=== PATIENT | male | born 1980 | race Caucasian/White ===

== ENCOUNTER 2017-09-24 14:42 | Inpatient (IN) | payer MEDICARE, MEDICAID ==
[~2017-09-24] VITALS: Ht 182.9 cm; Wt 120.1 kg
[~2017-09-24 14:42] MED LIST: BACL10TA PO; DICL50TA3 PO; HYDR-3533 PO; LAMI25TA3 PO; LORA-475 PO; LURA20TA PO; OMEP20TA39 PO; PREG100 PO; TEMA15 PO; VIIB40TA PO
[2017-09-24 14:46] VITALS: BP 170/108; PULSE 82; RESP 17; TEMP 97.5; O2SAT 99
[2017-09-24] MEDS ORDERED: OMEP20TA93 PO (15:12)
[2017-09-24] MEDS ORDERED: LAMO100 PO (15:12)
[2017-09-24] MEDS ORDERED: DICL50TA3 PO (15:12)
[2017-09-24] MEDS ORDERED: LURA80 PO (15:12)
[2017-09-24] MEDS ORDERED: LORA2TAB7 PO (15:12)
[2017-09-24] MEDS ORDERED: CYMB60CA PO (15:14)
[2017-09-24] MEDS ORDERED: MORPHINE SULFATE 2 MG/ML INJ IV PUSH ONE ×2 (15:15→17:45)
[2017-09-24] MEDS ORDERED: ONDANSETRON HCL 4 MG/2 ML VIAL IV PUSH ONE (15:15)
[2017-09-24] MEDS ORDERED: SODIUM CHLOR 0.9% 1000 ML INJ 1,000 ML IV ONE (15:15)
[2017-09-24 15:39] LABS: AUTOMATED NEUTROPHIL # 10.2 TH/MM3 (1.8-7.7); BASOPHIL # 0.3 TH/MM3 (0-0.2); BASOPHIL % 2.7 % (0.0-2.0); HEMOGLOBIN 14.7 GM/DL (13.0-17.0); LYMPH % 8.3 % (9.0-44.0); MEAN CELL VOLUME 74.6 FL (80.0-100.0); MEAN CORPUSCULAR HEMOGLOBIN 24.3 PG (27.0-34.0); MEAN CORPUSCULAR HGB CONC 32.6 % (32.0-36.0); MEAN PLATELET VOLUME 7.6 FL (7.0-11.0); MONO % 3.4 % (0.0-8.0); MONOCYTE # 0.4 TH/MM3 (0-0.9); NEUT % 85.6 % (16.0-70.0); PLATELET COUNT 295 TH/MM3 (150-450); RED BLOOD COUNT 6.04 MIL/MM3 (4.50-5.90); RED CELL DISTRIBUTION WIDTH 15.3 % (11.6-17.2); WHITE BLOOD COUNT 11.9 TH/MM3 (4.0-11.0)
[2017-09-24] MEDS ORDERED: ROBA500T PO (15:42)
[2017-09-24 15:51] LABS: CHLORIDE 103 MEQ/L (98-107); SODIUM (NA) 138 MEQ/L (136-145)
[2017-09-24 15:54] LABS: ALBUMIN 3.6 GM/DL (3.4-5.0); BICARBONATE 26.7 MEQ/L (21.0-32.0); CALCIUM 9.4 MG/DL (8.5-10.1); LIPASE 92 U/L (73-393)
[2017-09-24 15:55] LABS: BLOOD UREA NITROGEN 14 MG/DL (7-18); GLUCOSE,RANDOM 124 MG/DL (74-106)
[2017-09-24 15:57] LABS: ALT (GPT) 19 U/L (12-78); AST (GOT) 14 U/L (15-37); GLOMERULAR FILTRATION RATE 57 ML/MIN (>89)
[2017-09-24 15:58] LABS: OVALOCYTES 1+ (NORMAL); ROULEAUX PRESENT (NORMAL)
[2017-09-24 15:59] LABS: TOTAL BILIRUBIN ADULT 0.6 MG/DL (0.2-1.0); TOTAL PROTEIN 7.6 GM/DL (6.4-8.2)
[2017-09-24 16:00] LABS: ALKALINE PHOSPHATASE 101 U/L (45-117)
[2017-09-24] MEDS ORDERED: IOHEXOL 350 MG/ML 10 ML VIAL (for RAD DIAG) IVCONTRAST ONE (16:02)
[2017-09-24 16:25] VITALS: BP 149/92; PULSE 79; RESP 16; O2SAT 99
--- NOTE | 2017-09-24 16:52 | PD ---
HPI Chief Complaint: Abdominal Pain Time Seen by Provider: 14:59 Travel History International Travel<30 days: No Contact w/Intl Traveler<30days: No Traveled to known affect area: No History of Present Illness HPI This is a 37-year-old male who presents to the emergency department with abdominal discomfort that started this morning waking him up from sleep, constant and worsening throughout the day centered in the middle of his abdomen associated with multiple episodes of vomiting. He denies any associated fevers or chills and denies any diarrhea. He says he's had pain similar to this before but never this bad. He denies any history of abdominal surgeries. PFSH Past Medical History Bipolar Disorder: Yes Depression: Yes Diminished Hearing: No Medical other: Yes (chronic back pain) Respiratory: Yes (ASTHMA) Seizures: Yes Tetanus Vaccination: > 5 Years Influenza Vaccination: No Past Surgical History Other Surgery: Yes (BACK SURGERY L4-S1) Social History Alcohol Use: Yes (occ) Tobacco Use: Yes (smoke cigars 2-3 a day) Substance Use: Yes (states smoke "pot") Allergies-Medications (Allergen,Severity, Reaction): Coded Allergies: hydromorphone (Unverified Allergy, Intermediate, NAUSEA AND VOMITING, ) Reported Meds & Prescriptions Reported Meds & Active Scripts Active Reported Robaxin (Methocarbamol) 500 Mg Tab 500 Mg PO BID Cymbalta DR (Duloxetine HCl) 60 Mg Capdr 60 Mg PO BID Latuda (Lurasidone) 80 Mg Tab 80 Mg PO HS Omeprazole 20 Mg Tab 20 Mg PO DAILY Lorazepam 2 Mg Tab 2 Mg PO BID PRN Lamictal (Lamotrigine) 100 Mg Tab 100 Mg PO BID Diclofenac Sodium DR (Diclofenac Sodium) 50 Mg Tabdr 50 Mg PO BID Review of Systems Except as stated in HPI: all other systems reviewed are Neg Physical Exam Narrative GENERAL:Well appearing, no acute distress SKIN: Focused skin assessment warm and dry. HEAD: Atraumatic. Normocephalic. EYES: Pupils equal and round. No injection or drainage. ENT: Moist mucous membranes NECK: Trachea midline. CARDIOVASCULAR: Regular rate and rhythm. No murmur appreciated. RESPIRATORY: Clear to auscultation. Breath sounds equal bilaterally. GASTROINTESTINAL: Abdomen soft, mildly tender to palpation in the periumbilical region with no rebound or guarding. MUSCULOSKELETAL: No obvious deformities. NEUROLOGICAL: Awake and alert. No obvious cranial nerve deficits. Moving all extremities. PSYCHIATRIC: Appropriate mood and affect; insight and judgment normal. Data Data Last Documented VS Vital Signs Date Time Temp Pulse Resp B/P (MAP) Pulse Ox O2 Delivery O2 Flow Rate FiO2 09/24/17 16:25 79 16 149/92 (111) 99 Room Air 09/24/17 14:46 97.5 Orders Orders Urinalysis - C+S If Indicated (09/24/17 14:46) Complete Blood Count With Diff (09/24/17 15:05) Comprehensive Metabolic Panel (09/24/17 15:05) ^ Insert Iv (09/24/17 15:05) Lipase (09/24/17 15:05) Ct Abd/Pel W Iv Contrast(Rout) (09/24/17 ) Morphine Inj (Morphine Inj) (09/24/17 15:15) Ondansetron Inj (Zofran Inj) (09/24/17 15:15) Sodium Chlor 0.9% 1000 Ml Inj (Ns 1000 M (09/24/17 15:15) Iohexol 350 Inj (Omnipaque 350 Inj) (09/24/17 16:02) Us Abdomen Gallbladder (09/24/17 ) Prothrombin Time / Inr (Pt) (09/24/17 17:37) Act Partial Throm Time (Ptt) (09/24/17 17:37) NPO (09/24/17 17:39) Morphine Inj (Morphine Inj) (09/24/17 17:45) Piperacil-Tazo 3.375 Gm Premix (Zosyn 3. (09/24/17 18:30) Admit Order (Ed Use Only) (09/24/17 18:39) Consult General Surgery (09/24/17 ) Labs Laboratory Tests Test 09/24/17 15:15 09/24/17 18:05 White Blood Count 11.9 TH/MM3 Red Blood Count 6.04 MIL/MM3 Hemoglobin 14.7 GM/DL Hematocrit 45.0 % Mean Corpuscular Volume 74.6 FL Mean Corpuscular Hemoglobin 24.3 PG Mean Corpuscular Hemoglobin Concent 32.6 % Red Cell Distribution Width 15.3 % Platelet Count 295 TH/MM3 Mean Platelet Volume 7.6 FL Neutrophils (%) (Auto) 85.6 % Lymphocytes (%) (Auto) 8.3 % Monocytes (%) (Auto) 3.4 % Eosinophils (%) (Auto) 0.0 % Basophils (%) (Auto) 2.7 % Neutrophils # (Auto) 10.2 TH/MM3 Lymphocytes # (Auto) 1.0 TH/MM3 Monocytes # (Auto) 0.4 TH/MM3 Eosinophils # (Auto) 0.0 TH/MM3 Basophils # (Auto) 0.3 TH/MM3 CBC Comment AUTO DIFF Differential Comment AUTO DIFF CONFIRMED Platelet Estimate NORMAL Platelet Morphology Comment NORMAL Ovalocytes 1+ Rouleau PRESENT Blood Urea Nitrogen 14 MG/DL Creatinine 1.40 MG/DL Random Glucose 124 MG/DL Total Protein 7.6 GM/DL Albumin 3.6 GM/DL Calcium Level 9.4 MG/DL Alkaline Phosphatase 101 U/L Aspartate Amino Transf (AST/SGOT) 14 U/L Alanine Aminotransferase (ALT/SGPT) 19 U/L Total Bilirubin 0.6 MG/DL Sodium Level 138 MEQ/L Potassium Level 4.1 MEQ/L Chloride Level 103 MEQ/L Carbon Dioxide Level 26.7 MEQ/L Anion Gap 8 MEQ/L Estimat Glomerular Filtration Rate 57 ML/MIN Lipase 92 U/L Prothrombin Time 10.3 SEC Prothromb Time International Ratio 1.0 RATIO Activated Partial Thromboplast Time 27.8 SEC MDM Medical Decision Making Medical Screen Exam Complete: Yes Emergency Medical Condition: Yes Interpretation(s) Afebrile, no tachycardia, normotensive Mild leukocytosis Mild renal insufficiency Urinalysis is negative for infection Last 24 hours Impressions Gall Bladder Ultrasound 09/24/17 0000 Signed Impressions: Service Date/Time: Sunday, September 24, 2017 22:46 - CONCLUSION: 1. Cholelithiasis with positive De La Cruz's sign no evidence of pericholecystic fluid. 2. No evidence of biliary duct dilatation. 3. Nonvisualization of the pancreas. Graeme Edouard MD Abdomen/Pelvis CT 09/24/17 0000 Signed Impressions: Service Date/Time: Sunday, September 24, 2017 15:54 - CONCLUSION: 1. Gall bladder wall thickening with possible cholecystitis. Emphysematous cholecystitis is not excluded. Radionuclide imaging is recommended for further evaluation if clinically indicated. Alfa Mcgraw MD Differential Diagnosis Appendicitis, cholecystitis, gastritis, peptic ulcer disease, pancreatitis Narrative Course This is a 37-year-old male who presents to the emergency department with abdominal discomfort and vomiting that's been going on for 1 day. He was placed in a monitored an IV was established. Labs demonstrate a mild leukocytosis with normal biliary labs. CT abdomen and pelvis demonstrates gallbladder wall thickening with concern for pericholecystic fluid and possible acute cholecystitis. On reexamination the patient has been evident De La Cruz sign. Ultrasound was obtained which demonstrates a large stone and thickened gallbladder wall. Given these findings I think the patient has acute cholecystitis. He was given a dose of Zosyn, pain control and was admitted for surgical management. I discussed the case with Dr. Zamudio who will likely perform surgery later today. Physician Communication Physician Communication Discussed with Dr. Zamudio and Dr. Ramirez Diagnosis Primary Impression: Acute cholecystitis Admitting Information Admitting Physician Requests: Observation Dora Tomlinson MD Sep 24, 2017 16:52
--- NOTE | 2017-09-24 17:07 | RADRPT ---
EXAM DATE/TIME: 09/24/2017 15:54 [facility] COMPARISON: No previous studies available for comparison. INDICATIONS : Mid abdominal pain with nausea and vomiting. IV CONTRAST: 95 cc Omnipaque 350 (iohexol) IV ORAL CONTRAST: No oral contrast ingested. RADIATION DOSE: 24.13 CTDIvol (mGy) MEDICAL HISTORY : Seizures. SURGICAL HISTORY : Orthopedic surgery. ENCOUNTER: Initial ACUITY: 2 days PAIN SCALE: 6/10 LOCATION: abdomen TECHNIQUE: Volumetric scanning of the abdomen and pelvis was performed. Using automated exposure control and ad justment of the mA and/or kV according to patient size, radiation dose was kept as low as reasonably achievable to obtain optimal diagnostic quality images. DICOM format image data is available electro nically for review and comparison. FINDINGS: Examination of the lung bases demonstrates no abnormality. No pleural fluid is identified. No pulmona ry nodules are present. The liver and spleen are normal in size and no focal defects are identified. The pancreas demonstrates no evidence of mass and there is no dilatation of the pancreatic duct. Exam ination of gallbladder demonstrates prominent enhancement of the wall with minimal stranding in peric holecystic fluid. There are 2 small droplets of gas or gas containing stones in the fundus. Cholecyst itis is not excluded. The adrenal glands and kidneys appear normal bilaterally. No hydronephrosis or mass lesions are identified. Examination of the pelvis demonstrates no evidence of free fluid or pelvic mass. No abnormally enlarg ed inguinal or retroperitoneal lymph nodes are present. The bladder is unremarkable. Examination of t he right lower quadrant demonstrates no abnormality. The appendix is identified and appears normal. CONCLUSION: 1. Gall bladder wall thickening with possible cholecystitis. Emphysematous cholecystitis is not exclu ded. Radionuclide imaging is recommended for further evaluation if clinically indicated. Alfa Mcgraw MD on September 24, 2017 at 17:01 Board Certified Radiologist. This report was verified electronically.
--- NOTE | 2017-09-24 18:24 | RADRPT ---
EXAM DATE/TIME: 09/24/2017 22:46 [facility] COMPARISON: No previous studies available for comparison. INDICATIONS : Right upper quadrant pain, nausea and vomiting. MEDICAL HISTORY : Seizures. SURGICAL HISTORY : Back surgeries. ENCOUNTER: Initial ACUITY: 1 day PAIN SCORE: 4/10 LOCATION: Right upper quadrant MEASUREMENTS: LIVER: 13.8 cm length COMMON DUCT: 4 mm RIGHT KIDNEY: 10.9 x 5.1 x 6.3 cm FINDINGS: LIVER: Normal echotexture without focal lesion or ductal dilatation. COMMON DUCT: No intraluminal mass or stone visualized. GALLBLADDER: A large stone approaching 3 cm in size is identified within the gallbladder. There is minimal gallbla dder wall thickening but no evidence of pericholecystic fluid. Positive De La Cruz's sign was noted. PANCREAS: Not visualized due to gas artifact. RIGHT KIDNEY: No evidence of hydronephrosis, stone, or mass. CONCLUSION: 1. Cholelithiasis with positive De La Cruz's sign no evidence of pericholecystic fluid. 2. No evidence of biliary duct dilatation. 3. Nonvisualization of the pancreas. Graeme Edouard MD on September 24, 2017 at 18:20 Board Certified Radiologist. This report was verified electronically.
[2017-09-24] MEDS ORDERED: PIPERACIL-TAZO 3.375 GM PREMIX 50 ML IV ONE (18:30)
[2017-09-24 18:36] LABS: PROTHROMBIN TIME - PATIENT 10.3 SEC (9.8-11.6)
[2017-09-24 19:01] VITALS: BP 124/78; PULSE 72; RESP 16; TEMP 97.8; O2SAT 97
[2017-09-24] MEDS: SODIUM CHLOR 0.9% 1000 ML INJ 1,000 ML IV SCH (19:16)
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
[2017-09-24] MEDS ORDERED: LORazepam 1 MG TAB PO PRN (19:45)
[2017-09-24] MEDS ORDERED: FLUMAZENIL 0.5 MG/5 ML VIAL IV PUSH PRN (19:45)
[2017-09-24] MEDS ORDERED: LORazepam 2 MG/ML VIAL IV PUSH PRN ×4 (19:45)
[2017-09-24] MEDS ORDERED: LORazepam 2 MG TAB PO PRN (19:45)
[2017-09-24 19:57] LABS: BILIRUBIN, URINE NEG (NEG); BLOOD, URINE NEG (NEG); GLUCOSE,URINE NEG (NEG); KETONE, URINE TRACE mg/dL (NEG); NITRITE,URINE NEG (NEG); PH, URINE 6.5 (5.0-8.5); URINE LEUKOCYTE ESTERASE NEG (NEG)
[2017-09-24 20:23] VITALS: BP 136/78
[2017-09-24 20:24] LABS: URINE COLOR YELLOW (YELLW/STRAW)
[2017-09-24 20:25] LABS: MUCUS URINE FEW /lpf (OCC); SQUAMOUS EPITHELIAL CELL URINE 0-5 /hpf (0-5)
[2017-09-24 20:26] LABS: RBC, URINE 0-3 /hpf (0-3); WBC, URINE 0-2 /hpf (0-5)
[2017-09-24 20:35] VITALS: BP 153/99; PULSE 69; RESP 16; TEMP 98.5; O2SAT 95
[2017-09-24] MEDS ORDERED: BUPIVACAINE/EPINEPHRINE 0.5% PF 10 ML VIAL ONE ×2 (21:14→21:15)
[2017-09-24] MEDS ORDERED: MIDAZOLAM HCL 2 MG/2 ML VIAL ONE (21:22)
[2017-09-24] MEDS ORDERED: FAMOTIDINE 20 MG/2 ML VIAL ONE (21:23)
--- NOTE | 2017-09-24 21:33 | HHI.PR ---
Immediate Post Op Note Procedure Date: Sep 24, 2017 Pre Op Diagnosis: acute cholecystitis with cholelithiasis Post Op Diagnosis: same Surgeon: Claudio aZmudio MD Horse Show Manager(s): see or sheet Procedure: lap radha Findings: distended inflamed gallbladder Complications: none Specimen(s) removed: gallbladder Estimated blood loss: 5cc Anesthesia: General Drains: None Patient to: PACU Patient Condition: Good Claudio Zamudio MD Sep 24, 2017 21:33
[2017-09-24] MEDS ORDERED: hydrALAZINE HCL 20 MG/ML VIAL ONE (22:58)
[2017-09-24] MEDS ORDERED: MORPHINE SULFATE 4 MG/ML INJ ONE ×2 (23:16→23:54)
[2017-09-25] MEDS: METHOCARBAMOL 500 MG TAB PO SCH ×2 (00:23→08:53)
[2017-09-25] MEDS: DULoxetine HCl DR 60 MG CAP PO SCH ×2 (00:24→08:53)
[2017-09-25] MEDS: LORazepam 2 MG TAB PO PRN ×2 (00:24→09:02)
[2017-09-25] MEDS: lamoTRIgine 100 MG TAB PO SCH ×2 (00:24→08:53)
[2017-09-25] MEDS: SODIUM CHLOR 0.9% 1000 ML INJ 1,000 ML IV SCH (01:19)
[2017-09-25] MEDS: PIPERACIL-TAZO 3.375 GM PREMIX 50 ML IV SCH ×3 (01:19→13:00)
[2017-09-25] MEDS: MORPHINE SULFATE 2 MG/ML INJ IV PUSH PRN ×3 (03:10→11:41)
[2017-09-25 04:00] VITALS: BP 119/77; PULSE 93; RESP 16; TEMP 100.1; O2SAT 98
--- NOTE | 2017-09-25 05:46 | MB ---
cc: CHRISTINE FORD MD DATE OF CONSULTATION 09/24/2017 CHIEF COMPLAINT Abdominal pain. Acute cholecystitis with cholelithiasis. PRESENT ILLNESS The patient is a 37-year-old male who presents with acute onset of right upper quadrant abdominal pain. He states the pain started this morning and woke him up from sleep. He states the pain was 8/10, currently a 7/10, severe, sharp, constant, better with lying still, worse with movement. He states he has had similar pain episodes like this before but much more mild and not quite as severe. He came to the emergency department and further evaluation included CT scan showing thickened gallbladder with pericholecystic fluid and gallstones. Surgery was consulted. The patient did have a leukocytosis but had normal AST, ALT, alkaline phosphatase. The patient did have multiple episodes of vomiting as well. He did deny any fevers or chills and no change in bowel habits. PAST MEDICAL HISTORY 1. Bipolar. 2. Depression. 3. Chronic back pain. 4. Asthma. 5. Seizures. PAST SURGICAL HISTORY Back surgery x 5. SOCIAL HISTORY Occasional ETOH. Positive smoking cigars. Occasional smoking pot. Denies IVDA. MEDICATIONS See EMR. ALLERGIES HYDROMORPHONE. FAMILY HISTORY Mother with diabetes. Father with hypertension. REVIEW OF SYSTEMS GENERAL: Denies eye pain, ear pain. NECK: Denies swelling or pain. LUNGS: Denies cough or wheeze. HEART: Denies palpitation or chest pain. ABDOMEN: Complains of nausea, vomiting, abdominal pain. : Denies dysuria, hematuria. ENDOCRINE: Denies polyuria or polydipsia. INTEGUMENT: Denies masses or lesions. NEUROLOGIC: Denies numbness or tingling. PSYCH: Bipolar. PHYSICAL EXAMINATION GENERAL: Patient in no acute distress. VITAL SIGNS: Temperature 97.5, pulse 79, respirations 16, blood pressure 149/92, saturation 99%. HEENT: Pupils equal, round, reactive. NECK: Supple. Trachea midline. LUNGS: Clear to auscultation, bilateral expansion. HEART: S1-S2, regular. ABDOMEN: Soft, positive tenderness to palpation in the right upper quadrant. No rebound. Mild guarding. : Within normal limits. NEUROLOGIC: Awake, alert, alert and oriented x 4. 5/5 motor in all extremities. PSYCH: Appropriate mood and affect. LABORATORY AND DIAGNOSTIC DATA WBC 11.9, hemoglobin 14.7, hematocrit 45, platelets 295. Sodium 138, potassium 4.1, BUN 14, creatinine 1.4, glucose 124, calcium 9.4, AST 410, ALT 90, alkaline phos 101, lipase 92. INR 1. CT scan reviewed by myself showing gallbladder wall distended and thickening with gallstones. Ultrasound reviewed by myself- Cholelithiasis. Positive De La Cruz's. Thickened gallbladder wall. No pericholecystic fluid. ASSESSMENT The patient is a 37-year-old male who presents with acute onset of right upper quadrant abdominal pain, acute cholecystitis with cholelithiasis. PLAN After a full clinical, radiologic and laboratory workup the patient with the above-named issues including acute cholecystitis with cholelithiasis. At this point the patient needs to be n.p.o., IV fluids, IV pain control. We will plan for operative intervention including laparoscopic cholecystectomy. Discussed with the patient in detail who states understanding, agrees and would like to proceed. MD CLARITA Perez/JANET /9:16 PM /5:18 AM
--- NOTE | 2017-09-25 07:12 | HHI.PR ---
Subjective Subjective Notes incisional pain, no nausea, low grade fever Objective Vitals/I&O Vital Signs Date Time Temp Pulse Resp B/P (MAP) Pulse Ox O2 Delivery O2 Flow Rate FiO2 09/25/17 04:00 100.1 93 16 119/77 (91) 98 09/24/17 23:00 Room Air 09/24/17 22:47 8 Labs Laboratory Tests Test 09/24/17 15:15 09/24/17 18:05 09/24/17 19:45 White Blood Count 11.9 Red Blood Count 6.04 Hemoglobin 14.7 Hematocrit 45.0 Mean Corpuscular Volume 74.6 Mean Corpuscular Hemoglobin 24.3 Mean Corpuscular Hemoglobin Concent 32.6 Red Cell Distribution Width 15.3 Platelet Count 295 Mean Platelet Volume 7.6 Neutrophils (%) (Auto) 85.6 Lymphocytes (%) (Auto) 8.3 Monocytes (%) (Auto) 3.4 Eosinophils (%) (Auto) 0.0 Basophils (%) (Auto) 2.7 Neutrophils # (Auto) 10.2 Lymphocytes # (Auto) 1.0 Monocytes # (Auto) 0.4 Eosinophils # (Auto) 0.0 Basophils # (Auto) 0.3 CBC Comment AUTO DIFF Differential Comment AUTO DIFF CONFIRMED Platelet Estimate NORMAL Platelet Morphology Comment NORMAL Ovalocytes 1+ Rouleau PRESENT Blood Urea Nitrogen 14 Creatinine 1.40 Random Glucose 124 Total Protein 7.6 Albumin 3.6 Calcium Level 9.4 Alkaline Phosphatase 101 Aspartate Amino Transf (AST/SGOT) 14 Alanine Aminotransferase (ALT/SGPT) 19 Total Bilirubin 0.6 Sodium Level 138 Potassium Level 4.1 Chloride Level 103 Carbon Dioxide Level 26.7 Anion Gap 8 Estimat Glomerular Filtration Rate 57 Lipase 92 Prothrombin Time 10.3 Prothromb Time International Ratio 1.0 Activated Partial Thromboplast Time 27.8 Urine Color YELLOW Urine Turbidity SLIGHT Urine pH 6.5 Urine Specific Gregory GREATER THAN 1.035 Urine Protein TRACE Urine Glucose (UA) NEG Urine Ketones TRACE Urine Occult Blood NEG Urine Nitrite NEG Urine Bilirubin NEG Urine Leukocyte Esterase NEG Urine RBC 0-3 Urine WBC 0-2 Urine Squamous Epithelial Cells 0-5 Urine Mucus FEW Microscopic Urinalysis Comment CULT NOT INDICATED Abdomen: Other (soft incisional tenderness, incision c/d/i) A/P Assessment and Plan POD 1 Lap radha doing well plan clear liquids slowly advance as tolerated oob pain control possible d/c this afternoon Claudio Zamudio MD Sep 25, 2017 07:12
[2017-09-25] MEDS ORDERED: oxyCODONE/ACETAMINOPHEN 5 MG/325 MG TAB PO PRN (07:15)
--- NOTE | 2017-09-25 07:30 | MP ---
cc: CHRISTINE ZAMUDIO MD DATE OF SURGERY 09/24/2017 PREOPERATIVE DIAGNOSIS Acute cholecystitis with cholelithiasis. POSTOPERATIVE DIAGNOSIS Acute cholecystitis with cholelithiasis. PROCEDURE PERFORMED Laparoscopic cholecystectomy. SURGEON Dr. Christine Zamudio [employer] EXECUTIVE See OR sheet. ANESTHESIA GETA IV FLUIDS See anesthesia sheet. ESTIMATED BLOOD LOSS 10 cc. DRAINS None. COMPLICATIONS None. WOUND CLASSIFICATION Contaminated. SPECIMENS Gallbladder. FINDINGS A distended, inflamed gallbladder, multiple large gallstones. INDICATIONS The patient is a 37-year-old male who presents with acute onset of right upper quadrant abdominal pain. It started this a.m. The patient also had associated nausea and vomiting. He came into the emergency department for further evaluation including CT scan and ultrasound showing a thickened gallbladder wall with multiple gallstones. Therefore decision was made for laparoscopic cholecystectomy. DETAILS OF PROCEDURE The patient was taken to the operating suite, placed in supine position. He was prepped and draped in the usual sterile fashion after induction of general endotracheal anesthesia. Brief time-out was done stating the correct patient, procedure, surgical site and all were in agreement with this. Attention was first directed to the umbilicus where local anesthetic was injected. Stab/minnie incision was made, a 5-mm visible trocar was obtained, Veress needle placed, saline drop test confirmed intraabdominal placement. The abdomen was insufflated to 15-mm pneumoperitoneum. The Veress needle was changed for a visible Opti-Port 5-mm scope and on cursory inspection no evidence of injury. The patient was placed in reverse Trendelenburg, airplaned to the left. Three other trocars were placed including a 12-mm epigastric and two right subcostal 5-mm trocars. The omentum was noted to be covering the gallbladder. There were very minimal adhesions. The gallbladder was grasped and retracted cephalad. The gallbladder also was noted to have significant fatty induration as well. The cystic duct and cystic artery were dissected out in the usual manner as the only structure filling into the gallbladder. The cystic artery was dissected out, two clips placed proximal, one distal, Endoshears used to transect the cystic artery. Next the cystic duct again was dissected out, two clips proximal and one distal 5-mm, replaced and then transected and Endoshears. Electro Bovie cautery was used to remove the gallbladder from the gallbladder fossa. There was very minimal bleeding. Hemostasis was obtained with electro Bovie cautery. The gallbladder was placed in the EndoCatch bag and removed from the abdomen, again noting some very large stones. The pneumoperitoneum was removed and trocars were removed. The 12-mm trocar was closed with a 0 Vicryl in [id number] fashion. 4-0 Monocryl was used for all subcuticular port incisions. Sterile dressings were placed including Mastisol and Steri-Strips. The patient tolerated the procedure well with no operative complications. All lap and instrument counts were correct at the end of the procedure. The patient was extubated and taken stable to the PACU. MD CLARITA Perez/JANET /6:36 AM /6:53 AM
[2017-09-25 07:36] VITALS: O2SAT 98
[2017-09-25 08:00] VITALS: BP 120/82; PULSE 80; RESP 14; TEMP 97.4; O2SAT 98
[2017-09-25 08:47] LABS: AUTOMATED NEUTROPHIL # 10.4 TH/MM3 (1.8-7.7); BASOPHIL # 0.1 TH/MM3 (0-0.2); BASOPHIL % 1.1 % (0.0-2.0); HEMATOCRIT 38.9 % (39.0-51.0); HEMOGLOBIN 12.6 GM/DL (13.0-17.0); LYMPH % 6.8 % (9.0-44.0); LYMPHOCYTE # 0.8 TH/MM3 (1.0-4.8); MEAN CELL VOLUME 75.2 FL (80.0-100.0); MEAN CORPUSCULAR HEMOGLOBIN 24.4 PG (27.0-34.0); MEAN CORPUSCULAR HGB CONC 32.5 % (32.0-36.0); MEAN PLATELET VOLUME 7.2 FL (7.0-11.0); MONO % 2.5 % (0.0-8.0); MONOCYTE # 0.3 TH/MM3 (0-0.9); NEUT % 89.6 % (16.0-70.0); PLATELET COUNT 276 TH/MM3 (150-450); RED BLOOD COUNT 5.17 MIL/MM3 (4.50-5.90); RED CELL DISTRIBUTION WIDTH 15.3 % (11.6-17.2); WHITE BLOOD COUNT 11.6 TH/MM3 (4.0-11.0)
[2017-09-25] MEDS ORDERED: PANTOPRAZOLE SOD 20 MG DELAYED RELEASE TAB PO SCH (09:00)
[2017-09-25] MEDS ORDERED: LURASIDONE 40 MG TAB PO SCH (09:00)
[2017-09-25 09:20] LABS: BICARBONATE 25.4 MEQ/L (21.0-32.0); CALCIUM 8.3 MG/DL (8.5-10.1); CREATININE 1.2 MG/DL (0.60-1.30)
--- NOTE | 2017-09-25 09:45 | HHI.DCPOC ---
Discharge Care Plan Diagnosis: (1) Acute cholecystitis Goals to Promote Your Health * To prevent worsening of your condition and complications * To maintain your health at the optimal level Directions to Meet Your Goals Take your medications as prescribed Follow your dietary instruction Follow activity as directed Keep your appointments as scheduled Take your immunizations and boosters as scheduled If your symptoms worsen call your PCP, if no PCP go to Urgent Care Center or Emergency Room Smoking is Dangerous to Your Health. Avoid second hand smoke Call the 24-hour hour crisis hotline for domestic abuse at [facility] Sep 25, 2017 09:45
--- NOTE | 2017-09-25 13:05 | HHI.PR ---
Subjective Remarks Nursing denies any deterioration since last night. Patient states he feels much better this point. Is hungry and wants to eat. Objective Vital Signs Date Time Temp Pulse Resp B/P (MAP) Pulse Ox O2 Delivery O2 Flow Rate FiO2 09/25/17 08:00 97.4 80 14 120/82 (95) 98 09/25/17 07:36 98 Nasal Cannula 3.00 09/25/17 04:00 100.1 93 16 119/77 (91) 98 09/24/17 23:43 98.2 100 16 151/95 (113) 95 09/24/17 23:31 96 16 157/100 (119) 96 09/24/17 23:22 97 16 162/111 (128) 97 09/24/17 23:14 89 16 174/115 (134) 98 09/24/17 23:00 82 16 190/115 (140) 99 Room Air 09/24/17 22:47 98.1 94 14 195/120 (145) 100 Simple Mask 8 09/24/17 20:35 98.5 69 16 153/99 (117) 95 09/24/17 20:23 71 18 136/78 (97) 95 09/24/17 19:01 16 09/24/17 19:01 97.8 72 16 124/78 (93) 97 Room Air 09/24/17 16:25 79 16 149/92 (111) 99 Room Air 09/24/17 16:24 16 09/24/17 15:03 16 09/24/17 14:46 97.5 82 17 170/108 (128) 99 I/O 09/24/17 09/24/17 09/24/17 09/25/17 09/25/17 09/25/17 07:00 15:00 23:00 07:00 15:00 23:00 Intake Total 2337.4 ml 1022 ml 286 ml Output Total 305 ml 1175 ml Balance 2032.4 ml -153 ml 286 ml Intake Oral 200 ml 236 ml IV Total 1137.4 ml 522 ml 50 ml Other 1200 ml 300 ml Output Urine Total 300 ml 1175 ml Estimated Blood Loss 5 ml # Voids 1 1 Result Diagram: 09/25/17 0835 09/25/17 0835 Objective Remarks Four dry and intact surgical postop incision sites over abdomen abd soft, ND A/P Assessment and Plan Abdominal pain - Post op day 1, much improved after cholecystectomy. Tolerating by mouth intake. Bipolar - Continue home Latuda Seizures - Continue home Lamictal Back pain - Continue Robaxin CIWA Recent heavy ETOH use Continue home Cymbalta. Patient has met maximum benefit from hospitalization and is clinically stable for discharge. Timbo Ramirez MD Sep 25, 2017 13:05
== END 2017-09-25 13:45 | disposition home or self-care (01) | DRG 419 ==
LOC: PHED 14:42 → PHEDA 18:40 → PH3A 20:31 → OBSVTOIN 09-25 13:01
PROVIDERS: ADMIT Hospitalist; ATTEND Hospitalist
PROC: 0FT44ZZ Resection of Gallbladder, Percutaneous Endoscopic Approach (ICD-10-PCS; principal; 2017-09-24 21:34)
DX: K80.12 Calculus of gallbladder with acute and chronic cholecystitis without obstruction (principal); R56.9 Unspecified convulsions; F31.9 Bipolar disorder, unspecified; F17.290 Nicotine dependence, other tobacco product, uncomplicated; F12.90 Cannabis use, unspecified, uncomplicated; M54.9 Dorsalgia, unspecified; J45.909 Unspecified asthma, uncomplicated; K59.00 Constipation, unspecified
CPT/HCPCS: 74177; 76705; 80048; 80053; 81001; 83690; 85025; 85610; 85730; 88304; 94150; 96361; 96365; 96375; 96376; G0378; J0360; J2250; J2270; J2405; J2543; J7030; Q9967

== ENCOUNTER 2017-11-03 09:36 | Emergency (ER) | payer MEDICARE, MEDICAID ==
[~2017-11-03] VITALS: Ht 182.9 cm; Wt 123.8 kg
[~2017-11-03 09:36] MED LIST changes: -BACL10TA PO; +CYMB60CA PO; -HYDR-3533 PO; -LAMI25TA3 PO; +LAMO100 PO; -LORA-475 PO; +LORA2TAB7 PO; -LURA20TA PO; +LURA80 PO; -OMEP20TA39 PO; +OMEP20TA93 PO; -PREG100 PO; +ROBA500T PO; -TEMA15 PO; -VIIB40TA PO
[2017-11-03 09:40] VITALS: BP 140/83; PULSE 85; RESP 16; TEMP 97.2; O2SAT 98
[2017-11-03] MEDS ORDERED: ORPHENADRINE INJ 60 MG/2 ML AMP IM ONE (10:15)
[2017-11-03] MEDS ORDERED: KETOROLAC TROMETHAMINE 60 MG/2 ML (IM) VIAL IM ONE (10:15)
--- NOTE | 2017-11-03 10:20 | PD ---
HPI Chief Complaint: Musculoskeletal Complaint Time Seen by Provider: 09:54 Travel History International Travel<30 days: No Contact w/Intl Traveler<30days: No Traveled to known affect area: No History of Present Illness HPI 37-year-old male, with history of asthma, presents to the emergency Department with complaint of left lower anterior rib cage pain 2 days; woke up with the pain in the morning 2 days ago. Denies injury. Pain is worse with movement, deep breathing, coughing, laughing. Reports not being able to get a deep enough breath because of the pain. Denies shortness of breath or wheezing. Denies nasal congestion, ear pain, sore throat, cough, fever, vomiting. Denies hemoptysis. Denies and therapy. Has tried using his albuterol inhaler for symptomatic management with no relief; last use last night. Has not taken any other medications or turning her treatments to alleviate his symptoms.. Rates pain 8/10. Describes as stabbing. Worse with movement, deep breathing, coughing, laughing. No known relieving factors. Primary care provider is Dr. Machuca. Allergies to hydromorphone. History of asthma. Has no medical complaints. No other modifying factors or associated signs and symptoms. PFSH Past Medical History Arthritis: Yes Asthma: Yes Bipolar Disorder: Yes Anxiety: No Depression: Yes Cancer: No Cardiovascular Problems: No COPD: No Cerebrovascular Accident: No Diminished Hearing: No Endocrine: No Genitourinary: No Immune Disorder: No Implanted Vascular Access Dvce: Yes Musculoskeletal: Yes Neurologic: Yes Psychiatric: Yes Reproductive: No Respiratory: Yes Migraines: No Seizures: Yes Sleep Apnea: No Past Surgical History Abdominal Surgery: No AICD: No Arteriovenous Shunt: No Body Medical Devices: rods in back Cardiac Surgery: No Ear Surgery: No Endocrine Surgery: No Eye Surgery: No Genitourinary Surgery: No Gynecologic Surgery: No Insulin Pump: No Joint Replacement: No Oral Surgery: No Pacemaker: No Thoracic Surgery: No Other Surgery: Yes (BACK SURGERY L4-S1) Social History Alcohol Use: Yes (occ) Tobacco Use: Yes (smoke cigars 2-3 a day) Substance Use: Yes (states smoke "pot") Allergies-Medications (Allergen,Severity, Reaction): Coded Allergies: hydromorphone (Unverified Allergy, Intermediate, NAUSEA AND VOMITING, 2/16 /18) Reported Meds & Prescriptions Reported Meds & Active Scripts Active Reported Cymbalta DR (Duloxetine HCl) 60 Mg Capdr 60 Mg PO BID Latuda (Lurasidone) 80 Mg Tab 80 Mg PO HS Lorazepam 2 Mg Tab 2 Mg PO BID PRN Lamictal (Lamotrigine) 100 Mg Tab 100 Mg PO BID Review of Systems Except as stated in HPI: all other systems reviewed are Neg Physical Exam Narrative GENERAL: Well-nourished, well-developed male patient, in no acute distress; afebrile, nontoxic-appearing SKIN: Warm and dry. HEAD: Atraumatic. Normocephalic. EYES: Pupils equal and round. No scleral icterus. No injection or drainage. ENT: Mucosa pink and moist. NECK: Trachea midline. CHEST: Left lower anterior chest wall with reproducible tenderness is below the left breast; no crepitance or deformity; no rash, erythema, edema, ecchymosis noted to the area. No retractions or use of accessory muscles. CARDIOVASCULAR: Regular rate and rhythm. No murmur appreciated. RESPIRATORY: No accessory muscle use. Clear to auscultation. Breath sounds equal bilaterally. No retractions or tachypnea. GASTROINTESTINAL: Abdomen soft, non-tender, nondistended. Hepatic and splenic margins not palpable. Bowel sounds are active 4 quadrants. MUSCULOSKELETAL: No obvious deformities. No clubbing. No cyanosis. No edema. NEUROLOGICAL: Awake and alert. Oriented 3. No obvious cranial nerve deficits. Motor grossly within normal limits. Normal speech. Moves all extremities. 5/5 strength to all extremities. PSYCHIATRIC: Appropriate mood and affect; insight and judgment normal. Data Data Last Documented VS Vital Signs Date Time Temp Pulse Resp B/P (MAP) Pulse Ox O2 Delivery O2 Flow Rate FiO2 11/03/17 09:40 97.2 85 16 140/83 (102) 98 Orders Orders Ketorolac Inj (Toradol Inj) (11/03/17 10:15) Orphenadrine Inj (Norflex Inj) (11/03/17 10:15) Chest, Single Ap (11/03/17 10:07) Resp Incentive Spirometry (11/03/17 ) MDM Medical Decision Making Medical Screen Exam Complete: Yes Emergency Medical Condition: Yes Medical Record Reviewed: Yes Differential Diagnosis Chest wall pain, costochondritis, pneumonia, pleurisy, rib contusion Narrative Course 37-year-old male with left lower chest wall pain that is reproducible with movement and palpation 2 days. Denies injury. Denies fever, vomiting. Has history of asthma. Lungs are clear and equal throughout. Patient is in no acute distress without retractions or tachypnea. Denies wheezing, shortness of breath. Reports difficulty getting a deep breath in secondary to pain. Toradol , Norflex, chest x-ray ordered. 1058: Chest x-ray concludes: No acute disease. Discussed x-ray findings with the patient. Robaxin and ibuprofen prescribed for home. Provided an incentive spirometer for home. Instructed patient to follow up with primary care provider. Patient verbalizes understanding and agreement with treatment plan. Patient is medically cleared and stable for discharge. Discussed reasons to return to the emergency department. Patient agrees with treatment plan. The patients vital signs are stable and the patient is stable for outpatient follow- up and treatment. Patient discharged home, stable and in no acute distress. Diagnosis Primary Impression: Chest wall pain Referrals: Primary Care Physician Patient Instructions: Chest Wall Pain (ED), General Instructions, How to Use an Incentive Spirometer (ED) Additional Instructions: Ibuprofen or Tylenol as directed and as needed to reduce pain Robaxin as prescribed and as needed to reduce muscle spasms Heating pad and/or ice to affected area to reduce pain Avoid aggravating activities; increase activity as tolerated Gentle stretching to the affected muscle may be helpful Incentive spirometer for deep breathing exercises every 2 hours while awake Follow-up with a primary care provider Return to the emergency department immediately with worsening of symptoms Med/Other Pt SpecificInfo: Prescription(s) given Scripts Ibuprofen (Ibuprofen) 800 Mg Tab 800 MG PO Q6HR Y for PAIN, #30 TAB 0 Refills Prov: Daisy Chavez 11/03/17 Methocarbamol (Robaxin) 500 Mg Tab 500 MG PO QID Y for MUSCLE SPASM, #30 TAB 0 Refills Prov: Daisy Chavez 11/03/17 Disposition: 01 DISCHARGE HOME Condition: Stable Daisy Chavez Nov 03, 2017 10:20
--- NOTE | 2017-11-03 10:51 | RADRPT ---
EXAM DATE/TIME: 11/03/2017 10:11 [facility] COMPARISON: No previous studies available for comparison. INDICATIONS : Left lower rib pain with no known injury MEDICAL HISTORY : None. SURGICAL HISTORY : None. ENCOUNTER: Initial ACUITY: 2 days PAIN SCORE: 6/10 LOCATION: Left lower chest FINDINGS: A single view of the chest demonstrates the lungs to be symmetrically aerated without evidence of mas s, infiltrate or effusion. The cardiomediastinal contours are unremarkable. Osseous structures are intact. CONCLUSION: No acute disease. Jhonatan Sanchez MD FACR on November 03, 2017 at 10:49 Board Certified Radiologist. This report was verified electronically.
[2017-11-03] MEDS ORDERED: IBUP1TAB7 PO (10:59)
[2017-11-03] MEDS ORDERED: ROBA500T PO (10:59)
== END 2017-11-03 11:07 | disposition home or self-care (01) ==
LOC: PHEFT 09:36
DX: R07.89 Other chest pain (principal); F17.290 Nicotine dependence, other tobacco product, uncomplicated
CPT/HCPCS: 71045; 94150; 96372; 99283; J1885; J2360